=== PATIENT | female | born 1960 | race Caucasian/White ===

== ENCOUNTER 2017-04-20 16:43 | Emergency (ER) | payer BC ==
[~2017-04-20] VITALS: Ht 165.1 cm; Wt 84.0 kg
[2017-04-20] MEDS ORDERED: HYDROmorphone 2 MG/ML, 1ML ONE ×2 (17:57→18:11)
[2017-04-20] MEDS ORDERED: HYDROmorphone 1 MG/ML, 1ML IV PRN (18:00)
[2017-04-20] MEDS ORDERED: HYDROmorphone 1 MG/ML, 1ML IV ONE (18:30)
[2017-04-20] MEDS ORDERED: ETOMIDATE 20 MG/10 ML ONE (19:08)
[2017-04-20] MEDS ORDERED: FENTANYL PF 100 MCG/2ML ONE (19:08)
[2017-04-20 20:18] VITALS: BP 111/59
== END 2017-04-20 20:21 | disposition home or self-care (01) ==
LOC: ED 19:55
DX: S82.52XA Displaced fracture of medial malleolus of left tibia, initial encounter for closed fracture (principal); S82.852A Displaced trimalleolar fracture of left lower leg, initial encounter for closed fracture; X50.1XXA Overexertion from prolonged static or awkward postures, initial encounter; Y93.89 Activity, other specified; Y99.8 Other external cause status; Y92.89 Other specified places as the place of occurrence of the external cause
CPT/HCPCS: 27818; 73590; 73600; 96374; 99152; 99153; 99285; J1170

== ENCOUNTER → 2017-05-02 | Outpatient (CLI) | payer BC ==
[~2017-05-02] MED LIST: GADOBUTROL 7.5 MMOL/7.5 ML PFS ONE
== END | disposition home or self-care (01) ==
LOC: RAD 12:13
PROVIDERS: ATTEND Family Medicine
DX: D32.9 Benign neoplasm of meninges, unspecified (principal)
CPT/HCPCS: 70553; A9585